=== PATIENT | male | born 1960 | race Caucasian/White ===

== ENCOUNTER 2020-09-16 07:15 | Outpatient (REF) | payer OTHER, SELFPAY ==
--- NOTE | 2020-09-16 07:19 | MR_ITS ---
EXAMINATION: MR LUMBAR SPINE WITHOUT CONTRAST CLINICAL INFORMATION: Left foot drop. COMPARISON: MRI lumbar spine 03/07/2006. TECHNIQUE: MRI of the lumbar spine was obtained using routine sequences without contrast. FINDINGS: There is maintained lumbar lordosis with minimal levoscoliosis. The vertebral heights are normal. There is grade 1 anterolisthesis L5 over S1. Rest of the alignment is normal. There is severe loss of L5-S1 disc height. There are mild disc desiccation changes at all disc levels. At T12-L1 disc level there is no significant disc bulge, herniation or spinal stenosis. The neural foramina are patent bilaterally. At L1-L2 disc level there is minimal bulge without disc herniation or spinal stenosis. There is mild inferolateral recess narrowing of bilateral neural foramina. At L2-L3 disc level there is mild disc bulge without disc herniation or spinal stenosis. There is bilateral mild narrowing of inferolateral recess of neural foramina. At L3-L4 disc level there is mild diffuse bulge with bilateral facet joint ligamentum flavum hypertrophy resulting in mild concentric canal stenosis. There is [id number] inferolateral recess narrowing of neural foramina slightly greater on the right side. At L4-L5 disc level there is a mild diffuse bulge with right posterior annular tear, bilateral facet joint and mild ligamentum flavum hypertrophy resulting in mild concentric canal stenosis. There is bilateral severe narrowing of bilateral neural foramina slightly greater on the left. At L5-S1 disc level there is a grade 1 anterolisthesis with a broad-based diffuse pseudo disc bulge and bilateral facet joint and ligamentum flavum hypertrophy resulting in severe bilateral neural foraminal narrowing worse on the left with impingement of left L5 nerve root. There are bone marrow signal changes at the L5 and S1 vertebra. Mild endplate changes are seen at L3-L4 disc level. Conus medullaris terminates at T12-L1 disc level and appears normal in morphology. MR/MR lumbar spine wo con IMPRESSION: Multilevel degenerative disc bulges with concentric canal stenosis at L3-L4, L4-L5 and L5-S1 disc levels. There is bilateral narrowing of neural foramina at these three disc levels slightly worse on the left with impingement of left L5 nerve root within the neural foramina secondary to anterolisthesis.
== END 2020-09-16 07:16 | disposition home or self-care (01) ==
LOC: HO.MRI 07:15
PROVIDERS: PCP Internal Medicine; Visit Provider Internal Medicine
DX: M47.27 Other spondylosis with radiculopathy, lumbosacral region (principal); M21.372 Foot drop, left foot; Z98.890 Other specified postprocedural states
CPT/HCPCS: 72148